=== PATIENT | female | born 1985 | race Two or more races ===

== ENCOUNTER 2019-07-28 19:45 | Emergency (ER) | payer SELFPAY ==
[~2019-07-28] VITALS: Ht 170.2 cm; Wt 57.3 kg
[2019-07-28 19:48] VITALS: BP 121/68
--- NOTE | 2019-07-28 19:56 | NUR ---
Attempted visual acuity, pt unable to hold her eyes open to complete the test at this time.
[2019-07-28] MEDS ORDERED: proparacaine 0.5% ophthalmic drops 15ml EACHEYE ONE (20:05)
[2019-07-28] MEDS ORDERED: HYDROcodone/acetaminophen 5mg/325mg tablet PO ONE (20:45)
[2019-07-28] MEDS ORDERED: HYDR-3965 PO (20:46)
[2019-07-28] MEDS ORDERED: VIG0.5OS LEFTEYE (20:46)
== END 2019-07-28 21:14 | disposition home or self-care (01) ==
LOC: ER 19:46
DX: S05.02XA Injury of conjunctiva and corneal abrasion without foreign body, left eye, initial encounter (principal); Z79.899 Other long term (current) drug therapy; W46.0XXA Contact with hypodermic needle, initial encounter; Y93.89 Activity, other specified; Y92.89 Other specified places as the place of occurrence of the external cause; Y99.8 Other external cause status
CPT/HCPCS: 99283